=== PATIENT | female | born 1995 | race Caucasian/White ===

== ENCOUNTER 2022-11-16 07:39 | Emergency (ER) | payer BC, SELFPAY ==
[2022-11-16 07:43] VITALS: BP 132/72; PULSE 71; RESP 18; TEMP 35.9; O2SAT 100
[2022-11-16] MEDS: KETOROLAC (*BKC) 60 MG/2 ML VIAL IM (08:09)
--- NOTE | 2022-11-16 09:09 | ED.GENADULT ---
HPI - General Adult General Chief complaint: Back Pain/Injury Stated complaint: Shoulder and back pain Time Seen by Provider: 11/16/22 07:49 History of Present Illness HPI narrative: Patient is a 27-year-old female who presents ER with aches to the left shoulder/back and her left leg. Denies any known injury. No fevers or chills or sweats. No infectious symptoms reported. She denies any trauma. She has no numbness or tingling to the arms or leg. Ongoing over the last 2 days. She has tried ibuprofen and Tylenol without improvement. 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 Related Data Allergies Allergy/AdvReac Type Severity Reaction Status Date / Time No Known Allergies Allergy Verified 11/16/22 07:47 Review of Systems Review of Systems: All systems reviewed & are unremarkable except as noted in HPI and below Constitutional: Constitutional: Denies chills, Denies fatigue and Denies fever(s) ENT: Denies nasal congestion and Denies sore throat Musculoskeletal: Musculoskeletal: Reports back pain, Denies arthralgias and Denies joint swelling Integumentary/Breasts: Skin/Breast: Denies erythema, Denies rash and Denies skin ulcer Neurologic: Denies focal weakness and Denies numbness PMFSH Past Medical History Medical History (Updated 11/16/22 @ 09:15 by Robbie Villagran MD) Healthy female adult Surgical History Surgical History (Updated 11/16/22 @ 09:15 by Robbie Villagran MD) No history of previous surgery Exam Narrative: GENERAL: Well-appearing, well-nourished, and in no acute distress. HEAD: Normocephalic, atraumatic. NECK: Supple. No midline tenderness or paraspinal muscle tenderness. CHEST: Clear to auscultation. No respiratory distress. HEART: Regular rate and rhythm. Normal peripheral pulses. Back: No reproducible midline tenderness to the T/L-spine. There is left-sided trapezius muscular discomfort without palpable spasm. Mild paraspinal thoracic discomfort. EXTREMITIES: Normal range of motion. No edema. NEURO: Alert and oriented x3. PSYCH: Normal mood and affect. Course Course Emergency Course: Toradol for pain. Discussed outpatient treatment plan patient verbalized understanding. No acute injury or bony discomfort to warrant x-ray at this time. No neurologic deficit. Vital Signs Vital signs: Vital Signs Temperature 96.7 F L 11/16/22 07:43 Pulse Rate 71 11/16/22 07:43 Respiratory Rate 18 11/16/22 07:43 Blood Pressure 132/72 11/16/22 07:43 Pulse Oximetry 100 11/16/22 07:43 Oxygen Delivery Room Air 11/16/22 07:43 Temperature 96.7 F L 11/16/22 07:43 Pulse Rate 71 11/16/22 07:43 Respiratory Rate 18 11/16/22 07:43 Blood Pressure 132/72 11/16/22 07:43 Pulse Oximetry 100 11/16/22 07:43 Oxygen Delivery Room Air 11/16/22 07:43 Medical Decision Making Vital Signs Vital Signs: Vital Signs Temperature 96.7 F L 11/16/22 07:43 Pulse Rate 71 11/16/22 07:43 Respiratory Rate 18 11/16/22 07:43 Blood Pressure 132/72 11/16/22 07:43 Pulse Oximetry 100 11/16/22 07:43 Oxygen Delivery Room Air 11/16/22 07:43 Temperature 96.7 F L 11/16/22 07:43 Pulse Rate 71 11/16/22 07:43 Respiratory Rate 18 11/16/22 07:43 Blood Pressure 132/72 11/16/22 07:43 Pulse Oximetry 100 11/16/22 07:43 Oxygen Delivery Room Air 11/16/22 07:43 Discharge Plan Discharge Clinical Impression: Myalgia Patient Disposition: Home, Self-Care Condition: Stable Instructions: Musculoskeletal Pain (ED) Additional Instructions: Return the ER if you have fever over 100.4 ?F, you develop focal numbness or weakness of an arm or leg, you have additional concerns. Prescriptions: New cyclobenzaprine 10 mg tablet 10 mg PO TID PRN (Reason: muscle spasm) Qty: 20 0RF naproxen 375 mg tablet 375 mg PO BID Qty: 14 0RF Follow-up/Referrals: UNKNOWN,DOCTOR [Primary Care Provider] - Stand Alone
[2022-11-16 09:19] VITALS: BP 114/78; PULSE 64; RESP 18; O2SAT 99
== END 2022-11-16 09:21 | disposition home or self-care (01) ==
PROVIDERS: Emergency Provider Emergency Medicine
DX: M79.10 Myalgia, unspecified site (principal)
CPT/HCPCS: 96372; 99283; J1885

== ENCOUNTER 2024-05-14 17:24 | Emergency (ER) | payer SELFPAY ==
--- NOTE | ~2024-05-14 | XR_ITS ---
CHEST RADIOGRAPH, PA AND LATERAL CLINICAL HISTORY: chest pain . COMPARISON: None available TECHNIQUE: PA and lateral views of the chest. FINDINGS The cardiomediastinal silhouette is unremarkable. The lungs are clear. Visualized osseous structures and soft tissues are unremarkable. IMPRESSION: No focal infiltrate or effusion. Reviewed, dictated and finalized at location A. STRY WORKER
--- OUTSIDE RECORDS SUMMARY | 2024-05-14 17:26 | XMS_ITS | Clinical Summary ---
Author Organization [facility] Address Formerly [facility] [place] [address] Care Team Providers Care Co Director Name Role Phone None, Provider MD Primary Care Provider Unavaila ble Allergies No known active allergies Medications benzocaine (CHLORASEPTIC) [address] 1 lozenge (15 mg total) inside cheek every 2 (two) hours as needed for Sore throat. 18 lozenge 06/16/2022 Active Immunizations Name Administration Dates Next Due Tdap (Boostrix) 03/31/2022 Social History Tobacco Use Types Packs/Day Years Used Date Smoking Tobacco: Every Day Cigarettes Smokeless Tobacco: Never Tobacco Cessation:Ready to Q uit: Not Asked; Counseling Given: Not Answered Alcohol Use Standard Drinks/Week Comments Yes 0 (1 standard drink = 0.6 oz pur e alcohol) Comments No Sex and Gender Information Value Date Recorded Sex Assigned at Not on file Legal Sex Female 11:13 PM CDT Gender Identity Not on file Sexual Orientation Not on file Last Filed Vital Signs Vital Sign Reading Time Taken Comments Blood Pressure 142/85 06/16/2022 8:28 AM CDT Pulse 77 06/16/2022 8:28 AM CDT Temperature 36.1 C (97 F) 06/16/2022 8:28 AM CDT Respiratory Rate 16 06/16/2022 8:28 AM CDT Oxygen Saturation 97% 06/16/2022 8:28 AM CDT Inhaled Oxygen Concentration - - Weight 97.1 kg (214 lb) 06/16/2022 8:28 AM CDT Height 167.6 cm (5' 6 ) 06/16/2022 8:28 AM CDT Body Mass Index 34.54 06/16/2022 8:28 AM CDT Plan of Treatment Health Maintenance Due Date Last Done Comments Cervical Cancer Screening Pa p Smear (Age 30 to 64) Every 3 Years 1993 Annual Physical 1996 Pneumococcal Vaccine: Pediatrics (0 to 5 Years) and At-Risk Patients (6 to 64 Years) (1 of 2 - PCV) 1999 Hepatitis C 2011 Hepatitis B Vaccines (1 of 3 - 19+ 3-dose series) 2012 Cervical Cancer Screening Pa p with HPV Testing (Age 30 to 64) Every 5 Years 2023 Cervical Cancer Screening wi th HPV 2023 COVID-19 Vaccine ( - 2023-2 5 season) 2023 Influenza Adult (#1) 2024 02/14/2020 DTaP, Tdap and Td Vaccines ( 3 - Td or Tdap) 03/31/2032 03/31/2022, 02/14/2020 HPV Vaccines Aged Out No longer eligi ble based on patient's age to complete this topic Meningococcal B Vaccine Aged Out No l onger eligible based on patient's age to complete this topic Meningococcal Vaccine Aged Out No casi krista eligible based on patient's age to complete this topic RSV Immunizations Under 20 Months Aged Out No longer eligible b ased on patient's age to complete this topic Insurance [id number] Care Teams Co Director Relationship Specialty Start Date End Date None, Provider, PCP - General 01/21/20
--- NOTE | 2024-05-14 17:31 | ECG_ITS ---
Test Date: 2024-05-14 17:36:29 Measurements Intervals [place] Rate: 74 P: 42 WI: 151 QRS: 23 QRSD: 108 T: 28 QT: 367 QTc: 409 Interpretive Statements SINUS RHYTHM NORMAL ECG No previous ECG available for comparison Electronically Signed On 05-14-2024 19:59:31 FACS TEACHER by Srikanth Colmenares D.O.
[2024-05-14 17:35] VITALS: BP 139/81; PULSE 73; RESP 16; TEMP 36.6; O2SAT 100
[2024-05-14 19:21] LABS: Basophils Absolute Auto 0.1 K/mm3 (0.0-0.1); Basophils Percent Auto 0.6 % (0.2-1.2); Eosinophils Absolute Auto 0.2 K/mm3 (0-0.3); Hematocrit 39.6 % (37.0-47.0); Immature Granulocyte Absolute 0.03 K/mm3 (0.00-0.031); Immature Granulocyte Percent A 0.3 % (0-0.5); Lymphocytes Absolute Auto 4.57 K/mm3 (0.9-3.2); Lymphocytes Percent Auto 39.6 % (18.3-44.2); Mean Corpuscular HGB Conc 30.3 g/dl (32-36); Mean Corpuscular Hemoglobin 22.1 pg (26-34); Mean Corpuscular Volume 73.1 fl (80-100); Mean Platelet Volume 9.1 fl (7.4-10.4); Monocytes Absolute Auto 0.8 K/mm3 (0.1-0.6); Monocytes Percent Auto 6.8 % (2.6-8.5); Neutrophils Absolute Auto 5.9 K/mm3 (1.3-6.7); Neutrophils Percent Auto 50.7 % (45.5-73.1); Platelet Count Result 434 k/mm3 (150-375); Red Blood Count 5.42 M/mm3 (4.2-5.4); Red Cell Distribution Width 15.7 % (11.5-14.5); White Blood Count 11.5 K/mm3 (4.5-10.0)
[2024-05-14 19:34] LABS: Partial Thromboplastin Time 28.8 Seconds (22.3-36.8); Prothrombin Time 13.9 Seconds (11.1-14.7)
[2024-05-14 19:44] LABS: Troponin I < 0.012 ng/mL (0.000-0.034)
[2024-05-14 19:57] LABS: Alanine Aminotransferase 17 U/L (6-35); Albumin Level 4.1 g/dL (3.5-5.1); Alkaline Phosphatase 72 U/L (38-126); Anion Gap 11 mmol/L (4-12); Aspartate Amino Transferase 20 U/L (14-36); Bilirubin,Total 0.3 mg/dL (0.2-1.3); Blood Urea Nitrogen 10 mg/dL (7-17); Calcium 9.7 mg/dL (8.4-10.2); Carbon Dioxide 25 mmol/L (22-30); Chloride 106 mmol/L (98-107); Estimated CRCL calculation 111 ml/min; Estimated Glomerular Filt Rate > 60; Glucose 91 mg/dL (65-110); Potassium 3.9 mmol/L (3.4-5.0); Sodium 142 mmol/L (137-145)
[2024-05-14 20:16] LABS: Platelet Estimate Increased (Adequate)
[2024-05-14 20:17] LABS: Atypical Lymphocytes Present; Ovalocytes 1+; Schistocytes None Seen
[2024-05-14 20:38] LABS: Lipase 37 U/L (23-300)
--- NOTE | 2024-05-14 20:54 | PC.NURSE ---
pt called to triage bay two times for repeat vital signs with no answer. @ 2044
--- NOTE | 2024-05-14 21:36 | PC.NURSE ---
Pt called for repeat vital signs with no answer @ 8079
--- OUTSIDE RECORDS SUMMARY | 2024-05-14 22:00 | XMS_ITS | Clinical Summary ---
Author Organization [facility] Address Formerly [facility] [place] [address] Care Team Providers Care Machine Stonecutter Name Role Phone None, Provider MD Primary [...] to complete this topic Insurance [id number] Care Teams Machine Stonecutter Relationship Specialty Start Date End Date None, Provider, PCP - General 01/21/20
== END 2024-05-14 21:35 | disposition left against medical advice (07) ==
LOC: ANHED 21:58
PROVIDERS: Emergency Provider Student in an Organized Health Care Education/Training Program
DX: R07.9 Chest pain, unspecified (principal)
CPT/HCPCS: 36415; 71046; 80053; 83690; 84484; 85025; 85610; 85730; 93005; 99199